=== PATIENT | male | born 1965 | race Asian ===

== ENCOUNTER 2019-09-11 03:25 | Emergency (ER) | payer OTHER ==
[2019-09-11 03:42] VITALS: BP 128/85
[2019-09-11 04:36] LABS: Basophils % (Auto) 0.3 % (0.0-1.8); Eosinophils # (Auto) 0.1 K/mm3 (0.0-0.4); Eosinophils % (Auto) 1.2 % (0.0-4.3); Hematocrit 45.3 % (35.5-45.6); Hemoglobin 15.7 gm/dl (11.8-15.2); Lymphocytes # (Auto) 2.7 K/mm3 (1.2-5.4); Lymphocytes % (Auto) 38.3 % (13.4-35.0); Mean Corpuscular HGB Conc 35 % (32-34); Mean Corpuscular Volume 92 fl (84-94); Monocytes # (Auto) 0.5 K/mm3 (0.0-0.8); Monocytes % (Auto) 6.5 % (0.0-7.3); Platelet Count 254 K/mm3 (140-440); Red Blood Count 4.93 M/mm3 (3.65-5.03); Red Cell Distribution Width 12.8 % (13.2-15.2)
--- NOTE | 2019-09-11 04:49 | XRay Report ---
CHEST 2 VIEWS INDICATION / CLINICAL INFORMATION: MAIN: SOB THIS AM. COMPARISON: None available. FINDINGS: SUPPORT DEVICES: None. HEART / MEDIASTINUM: No significant abnormality. LUNGS / PLEURA: No significant pulmonary or pleural abnormality. No pneumothorax. ADDITIONAL FINDINGS: No significant additional findings. IMPRESSION: 1. No significant abnormality. Signer Name: Kay Coto MD Signed: 09/11/2019 4:45 AM Workstation Name: [id number]
[2019-09-11 05:01] LABS: Alanine Aminotransferase 28 units/L (7-56); Albumin 5.1 g/dL (3.9-5); BUN/Creatinine Ratio 18; Blood Urea Nitrogen 14 mg/dL (9-20); Calcium 10.1 mg/dL (8.4-10.2); Hemolysis Index 7
--- NOTE | 2019-09-11 05:01 | Emergency Department Report ---
ED Shortness of Breath HPI - General Chief Complaint: Upper Respiratory Infection Stated Complaint: SOB Time Seen by Provider: 09/11/19 04:08 Source: patient Mode of arrival: Ambulatory Limitations: No Limitations - History of Present Illness Initial Comments: Patient is a 53-year-old male presents emergency room with complaints of shortness of breath that began 2 days ago. He has associated dry cough. He states that 2 days ago he had chest pain but that has since resolved and he no longer has any chest pain at all. He denies any fever, nausea, vomiting, diarrhea, leg swelling, sore throat. He denies any recent travel, recent surgery, sick contacts, known contact with COVID positive patient. He states he is an every day smoker half a pack a day. He denies any past medical history or allergies to medications. - Related Data Previous Rx's Medication Instructions Recorded Last Taken Type Albuterol INH(or & Nicu Only) 2 puff IH QID PRN #8.5 gram 09/11/19 Unknown Rx [ProAir HFA Inhaler] predniSONE [Deltasone] 40 mg PO QDAY 5 Days #10 tab 09/11/19 Unknown Rx Allergies Allergy/AdvReac Type Severity Reaction Status Date / Time No Known Allergies Allergy Unverified 09/11/19 03:43 ED Review of Systems ROS: Stated complaint: SOB Other details as noted in HPI Comment: All other systems reviewed and negative ED Past Medical Hx - Past Medical History Previous Medical History?: No - Surgical History Past Surgical History?: No - Social History Smoking Status: Current Every Day Smoker Substance Use Type: Alcohol - Medications Home Medications: Home Medications Medication Instructions Recorded Confirmed Last Taken Type Albuterol INH(or & Nicu Only) 2 puff IH QID PRN #8.5 gram 09/11/19 Unknown Rx [ProAir HFA Inhaler] predniSONE [Deltasone] 40 mg PO QDAY 5 Days #10 tab 09/11/19 Unknown Rx ED Physical Exam - General Limitations: No Limitations General appearance: alert, in no apparent distress - Head Head exam: Present: atraumatic, normocephalic - Eye Eye exam: Present: normal appearance - ENT ENT exam: Present: mucous membranes moist - Respiratory Respiratory exam: Present: normal lung sounds bilaterally. Absent: respiratory distress, wheezes, rales, rhonchi, stridor, chest wall tenderness, accessory muscle use, decreased breath sounds, prolonged expiratory - Cardiovascular Cardiovascular Exam: Present: regular rate, normal rhythm, normal heart sounds. Absent: systolic murmur, diastolic murmur, rubs, gallop - Neurological Exam Neurological exam: Present: alert, oriented X3 - Psychiatric Psychiatric exam: Present: normal affect, normal mood - Skin Skin exam: Present: warm, dry, intact ED Course Vital Signs 09/11/19 03:39 Temperature 97.7 F Pulse Rate 66 Respiratory 18 Rate Blood Pressure 128/85 O2 Sat by Pulse 98 Oximetry ED Medical Decision Making - Lab Data Result diagrams: 09/11/19 04:16 09/11/19 04:16 Lab Results 09/11/19 09/11/19 Range/Units 04:16 04:16 WBC 7.0 (4.5-11.0) K/mm3 RBC 4.93 (3.65-5.03) M/mm3 Hgb 15.7 H (11.8-15.2) gm/dl Hct 45.3 (35.5-45.6) % MCV 92 (84-94) fl MCH 32 (28-32) pg MCHC 35 H (32-34) % RDW 12.8 L (13.2-15.2) % Plt Count 254 (140-440) K/mm3 Lymph % (Auto) 38.3 H (13.4-35.0) % Riley % (Auto) 6.5 (0.0-7.3) % Eos % (Auto) 1.2 (0.0-4.3) % Baso % (Auto) 0.3 (0.0-1.8) % Lymph # 2.7 (1.2-5.4) K/mm3 Riley # 0.5 (0.0-0.8) K/mm3 Eos # 0.1 (0.0-0.4) K/mm3 Baso # 0.0 (0.0-0.1) K/mm3 Seg Neutrophils % 53.7 (40.0-70.0) % Seg Neutrophils # 3.7 (1.8-7.7) K/mm3 Sodium 140 (137-145) mmol/L Potassium 4.1 (3.6-5.0) mmol/L Chloride 102.2 (98-107) mmol/L Carbon Dioxide 22 (22-30) mmol/L Anion Gap 20 mmol/L BUN 14 (9-20) mg/dL Creatinine 0.8 (0.8-1.5) mg/dL Estimated GFR > 60 ml/min BUN/Creatinine Ratio 18 % Glucose 107 H (75-100) mg/dL Calcium 10.1 (8.4-10.2) mg/dL Total Bilirubin 0.80 (0.1-1.2) mg/dL AST 26 (5-40) units/L ALT 28 (7-56) units/L Alkaline Phosphatase 93 (35-129) units/L Troponin T < 0.010 (0.00-0.029) ng/mL NT-Pro-B Natriuret Pep < 5 (0-900) pg/mL Total Protein 8.0 (6.3-8.2) g/dL Albumin 5.1 H (3.9-5) g/dL Albumin/Globulin Ratio 1.8 % - EKG Data EKG shows normal: sinus rhythm, axis, intervals, ST-T waves Rate: normal - EKG Data 09/11/19 06:16 Q waves in the inferior leads no STEMI no old EKG for comparison - Radiology Data Radiology results: report reviewed CHEST 2 VIEWS INDICATION / CLINICAL INFORMATION: MAIN: SOB THIS AM. COMPARISON: None available. FINDINGS: SUPPORT DEVICES: None. HEART / MEDIASTINUM: No significant abnormality. LUNGS / PLEURA: No significant pulmonary or pleural abnormality. No pneumothorax. ADDITIONAL FINDINGS: No significant additional findings. IMPRESSION: 1. No significant abnormality. Signer Name: Kay Coto MD Signed: 09/11/2019 4:45 AM Workstation Name: [id number] Transcribed By: JR Dictated By: Kay Coto MD Electronically Authenticated By: Kay Coto MD Signed Date/Time: 09/11/19444 DD/ 3 TD/TT: - Medical Decision Making Patient is a 53-year-old male presents emergency room with complaints of shortness of breath that began 2 days ago. He has associated dry cough. He states that 2 days ago he had chest pain but that has since resolved and he no longer has any chest pain at all. He denies any fever, nausea, vomiting, diarrhea, leg swelling, sore throat. He denies any recent travel, recent surgery, sick contacts, known contact with COVID positive patient. He states he is an every day smoker half a pack a day. He denies any past medical history or allergies to medications. Vitals are stable. Labs are normal. Troponin is negative. BNP is normal. Chest x-ray with no acute process. EKG with Q waves present in the inferior leads. Breath sounds are clear bilaterally no wheezing, no rales, no rhonchi. Discussed case with Dr. Gilliland, ER attending who states that patient can follow-up with outpatient cardiology regarding EKG findings. Facesheet faxed over to cardiology group for close outpatient follow-up and outpatient stress test. Discussed all results with patient. Shortness of breath and dry cough could be secondary to COPD from chronic smoking, patient gi ellie albuterol inhaler and short course of steroids. Well score is 0, PE very unlikely. Heart score is 2, JORGE LUIS score 0, patient will be referred to outpatient cardiology. Discussed smoking cessation with patient. Patient will be referred to primary care doctor, pulmonology, cardiology. advised pt please take medication as prescribed. Please stop smoking. Please follow-up with a plastic panel installer, your information has been faxed over to the plastic panel installer they should give you a call within the next few days, if they do not please call them. Follow-up with a principal network engineer. Follow-up with your primary care doctor. Return to emergency room for any new or worsening symptoms. - Differential Diagnosis PNA, URI, COPD, bronchitis, ACS, PTX, PE, anemia, anxiety, CHF, CM Critical care attestation.: If time is entered above; I have spent that time in minutes in the direct care of this critically ill patient, excluding procedure time. ED Disposition Clinical Impression: SOB (shortness of breath), Dry cough, Tobacco abuse, Abnormal EKG Disposition: DC-01 TO HOME OR SELFCARE Is pt being admited?: No Does the pt Need Aspirin: No Condition: Stable Instructions: How to Stop Smoking (ED), Dyspnea (ED) Additional Instructions: Please take medication as prescribed. Please stop smoking. Please follow-up with a plastic panel installer, your information has been faxed over to the plastic panel installer they should give you a call within the next few days, if they do not please call them. Follow-up with a principal network engineer. Follow-up with your primary care doctor. Return to emergency room for any new or worsening symptoms. Prescriptions: predniSONE [Deltasone] 40 mg PO QDAY 5 Days #10 tab Albuterol INH(or & Nicu Only) [ProAir HFA Inhaler] 2 puff IH QID PRN #8.5 gram PRN Reason: Shortness Of Breath Referrals: PAM PAULSON MD [Staff Physician] - 2-3 Days ELISE OSULLIVAN MD [Staff Physician] - 2-3 Days PRIMARY CARE, [Primary Care Provider] - 2-3 Days Time of Disposition: 06:17 Print Language: KITTITIAN
== END 2019-09-11 06:30 | disposition home or self-care (01) ==
LOC: ED 03:25
DX: R06.02 Shortness of breath (principal); R05 Cough; F17.200 Nicotine dependence, unspecified, uncomplicated; R94.31 Abnormal electrocardiogram [ECG] [EKG]; Z79.899 Other long term (current) drug therapy
CPT/HCPCS: 36415; 71046; 80053; 83880; 84484; 85025; 93005